=== PATIENT | male | born 1995 | race Caucasian/White ===

== ENCOUNTER 2022-07-16 03:58 | Day surgery (SDC) | payer OTHER ==
[2022-07-13 11:02] VITALS: BMI 21.9
[~2022-07-16 03:58] MED LIST: OXYMETAZOLINE 0.05% NASAL SOLUTION 15 ML BOTTLE NS ONE
[2022-07-16] MEDS ORDERED: SUCCINYLCHOLINE CHLORIDE 200 MG/10 ML SYRINGE ONE (12:00)
[2022-07-16] MEDS ORDERED: PROPOFOL 40 ML ONE (12:00)
[2022-07-16] MEDS ORDERED: MIDAZOLAM HCL 2 MG/2 ML SINGLE DOSE VIAL ONE (12:01)
[2022-07-16] MEDS ORDERED: DEXMEDETOMIDINE HCL 200 MCG/2 ML IVPB ONE (12:05)
[2022-07-16] MEDS ORDERED: DEXAMETHASONE SOD PHOSPHATE 10 MG/1 ML VIAL ONE (12:06)
[2022-07-16] MEDS ORDERED: ceFAZolin SODIUM 1 GM VIAL IVPB ONE (12:25)
[2022-07-16] MEDS ORDERED: OXYMETAZOLINE 0.05% NASAL SOLUTION 15 ML BOTTLE NS ONE (12:56)
[2022-07-16] MEDS ORDERED: PROPOFOL 20 ML ONE (13:03)
[2022-07-16] MEDS ORDERED: oxyCODONE HCL 5 MG TABLET PO PRN (13:47)
[2022-07-16] MEDS ORDERED: ONDANSETRON 4 MG/2 ML VIAL IVPUSH PRN (13:47)
[2022-07-16 15:07] VITALS: PULSE 65
[2022-07-16 15:45] VITALS: BP 122/81; RESP 18; TEMP 97.7
[2022-07-16] MEDS ORDERED: oxyCODONE HCL 5 MG TABLET ONE (16:08)
== END 2022-07-16 17:21 | disposition home or self-care (01) ==
LOC: JASU-SURG 03:58
PROVIDERS: ATTEND Otolaryngology
PROC: 0CTQXZZ Resection of Adenoids, External Approach (ICD-10-PCS; 2022-07-16)
PROC: 09TL7ZZ Resection of Nasal Turbinate, Via Natural or Artificial Opening (ICD-10-PCS; 2022-07-16)
PROC: 0CTPXZZ Resection of Tonsils, External Approach (ICD-10-PCS; principal; 2022-07-16 12:00)
DX: J35.3 Hypertrophy of tonsils with hypertrophy of adenoids (principal); J34.3 Hypertrophy of nasal turbinates; G47.33 Obstructive sleep apnea (adult) (pediatric)
CPT/HCPCS: 94760; J1100